=== PATIENT | female | born 1960 | race Caucasian/White ===

== ENCOUNTER 2017-05-13 16:31 | Emergency (ER) | payer OTHER ==
[2014-01-10 13:11] VITALS: Ht 160 cm; Wt 93.0 kg
[~2017-05-13] VITALS: Ht 160 cm; Wt 93.0 kg
[~2017-05-13 16:31] MED LIST: ABA250I IV; ABA250I IVPB; ALB18R INH; ALBU8.5H12 IH; AMOX-559 PO; ASCO-504 PO; AZIT-18 PO; CALC600T63 PO; CELE-1 PO; CEPH-13 PO; CHOL200021 PO; CIP500 PO; CYC10 PO; CYCL1DRO6 OU; FOLI-68 PO; HYDR-385 PO; METH2.5T43 PO; NACL TP; OMEG-96 PO; OMEG500C5 PO; OMEP-125 PO; OXYC-373 PO; OXYC-823 PO; OXYC-865 PO; OXYGENHOME INH; PER PO; PNEU0.5D3 IM; PRE5 PO; PRED-1 PO; PRED20TA6 PO
--- NOTE | 2017-05-13 17:06 | ER Report ---
History and Physical Time Seen By MD: 17:05 Hx. of Stated Complaint: pt reports "seeing stars" and other vision changes, pressure in head. pt reports high bp at doctor ~1 week ago. hasn't followed up with primary (WINDY FLOOD MD) HPI/ROS CHIEF COMPLAINT: Elevated blood pressure HISTORY OF PRESENT ILLNESS: Patient is a [age]-year-old female who presents emergency department with complaint of elevated blood pressure. She's been having headache for the last week with some blurry vision. She's not formally diagnosed with hypertension. But she took her blood pressure at a pharmacy and was found to be elevated. Patient denies any chest pain or shortness of breath she denies abdominal pain. She does report some mild headache. She denies any blood in her urine. Patient denies a former smoker but quit greater than 20 years ago REVIEW OF SYSTEMS: Respiratory: No cough, no dyspnea. Cardiovascular: No chest pain, no palpitations. Gastrointestinal: No vomiting, no abdominal pain. Musculoskeletal: No back pain. (WINDY FLOOD MD) Allergies: Coded Allergies: infliximab (Verified Allergy, Intermediate, THROAT SWELLING, 05/13/17) walnut (Verified Allergy, Intermediate, swelling, 05/13/17) Sulfa (Sulfonamide Antibiotics) (Verified Allergy, Unknown, Unknown, ) Uncoded Allergies: CHEAP METALS (Allergy, Mild, SORES, BLISTERS, 08/14/13) Home Meds Active Scripts Lorazepam (ATIVAN) 0.5 Mg Tablet, 0.5 MG PO Q6-8H Y for anxiety, #15 Prov:FRANCES KELLER DO 05/13/17 Omeprazole (OMEPRAZOLE) 20 Mg Capsule.dr, 1 CAP PO DAILY, #90 CAP 3 Refills TAKE ONE CAPSULE BY MOUTH ONCE A DAY Prov:JERONIMO AYALA MD 05/08/16 Reported Medications Ascorbate Calcium (VITAMIN C) 500 Mg Tablet, 1 TAB PO QDAY 10/12/15 [place]-3 Fatty Acids/Fish Oil (OMEGA 3 1,000 MG SOFTGEL) 1 Each Capsule, 2 TAB PO QDAY, CAPSULE 10/12/15 Folic Acid (FOLIC ACID) 1 Mg Tablet, 1 TAB PO QDAY, TAB 10/12/15 Methotrexate Sodium (METHOTREXATE) 2.5 Mg Tablet, 2.5-4 MG PO QWEEK 10/12/15 Oxygen (OXYGEN) Inha, 2.5 L INH QHS, L 10/12/15 Cyclosporine (RESTASIS) 1 Each Droperette, 1 DROP OU BID 09/23/14 Oxycodone Hcl/Acetaminophen (PERCOCET 5-325 MG TABLET) 1 Each Tablet, 1 EACH PO QHS, TAB 09/23/14 Calcium Carbonate (CALCIUM) Unknown Strength Tablet, PO 09/23/14 Abatacept (ORENCIA 250 MG VIAL) 250 Mg/Vial Injs, 4 UNITS IVPB Q4WK 11/19/13 Celecoxib (CELEBREX) 200 Mg Capsule, 1 CAP PO BID, CAPSULE TAKE 1 CAPSULE BY MOUTH TWICE DAILY 11/19/13 Cholecalciferol (Vitamin D3) (VITAMIN D) 2,000 Unit Capsule, 1 CAP PO DAILY, CAPSULE 11/19/13 Past Medical/Surgical History Rheumatoid arthritis and multiple joint surgeries (WINDY FLOOD MD) Smoking Status: Former Smoker Hx Substance Use Disorder: Yes (FROM AGE 13-AGE 23) Hx Alcohol Use: Yes (WINDY FLOOD MD) Constitutional Vital Sign - Last 24 Hours 05/13/17 05/13/17 05/13/17 05/13/17 16:36 16:39 17:00 17:01 Temp 99.1 Pulse 94 81 Resp 16 B/P (MAP) 176/91 (119) 176/91 129/84 (99) Pulse Ox 92 93 O2 Delivery Room Air 05/13/17 05/13/17 05/13/17 05/13/17 17:30 17:31 18:00 18:01 Pulse 86 78 B/P (MAP) 134/92 (106) 123/65 (84) Pulse Ox 94 93 05/13/17 05/13/17 05/13/17 05/13/17 18:06 18:11 18:16 18:24 Pulse 79 80 77 B/P (MAP) 128/78 (95) Pulse Ox 93 93 93 05/13/17 18:26 Pulse 80 Pulse Ox 95 (FRANCES KELLER DO) Physical Exam General Appearance: The patient is alert, has no immediate need for airway protection and no signs of toxicity. Eyes: Pupils equal and round no pallor or injection. ENT, Mouth: Mucous membranes are moist. Respiratory: There are no retractions, lungs are clear to auscultation. Cardiovascular: Regular rate and rhythm. [ ] Gastrointestinal: Abdomen is soft and non tender, no masses, bowel sounds normal. Neurological: Awake alert in no acute distress Skin: Warm and dry, no rashes. Musculoskeletal: Neck is supple non tender. Extremities are nontender, nonswollen and have full range of motion. [ ] (WINDY FLOOD MD) Medical Decision Making Data Points Result Diagram: 05/13/17 1720 05/13/17 1720 Laboratory Hematology Test 05/13/17 17:20 05/13/17 18:25 Red Blood Count 5.26 M/uL (4.17-5.56) Mean Corpuscular Volume 81.9 fL (80.0-96.0) Mean Corpuscular Hemoglobin 27.8 pg (26.0-33.0) Mean Corpuscular Hemoglobin Concent 34.0 g/dL (32.0-36.0) Red Cell Distribution Width 16.8 % (11.5-14.5) Mean Platelet Volume 6.9 fL (7.2-11.1) Neutrophils (%) (Auto) 60.1 % (39.4-72.5) Lymphocytes (%) (Auto) 29.1 % (17.6-49.6) Monocytes (%) (Auto) 6.9 % (4.1-12.4) Eosinophils (%) (Auto) 2.6 % (0.4-6.7) Basophils (%) (Auto) 1.3 % (0.3-1.4) Nucleated RBC Relative Count (auto) 0.0 /100WBC Neutrophils # (Auto) 5.6 K/uL (2.0-7.4) Lymphocytes # (Auto) 2.7 K/uL (1.3-3.6) Monocytes # (Auto) 0.6 K/uL (0.3-1.0) Eosinophils # (Auto) 0.2 K/uL (0.0-0.5) Basophils # (Auto) 0.1 K/uL (0.0-0.1) Nucleated RBC Absolute Count (auto) 0.00 K/uL Sodium Level 140 mmol/L (137-145) Potassium Level 3.9 mmol/L (3.5-5.0) Chloride Level 106 mmol/L (98-107) Carbon Dioxide Level 23 mmol/L (22-31) Blood Urea Nitrogen 14 mg/dl (7-18) Creatinine 0.80 mg/dl (0.52-1.04) Glomerular Filtration Rate Calc > 60.0 Random Glucose 78 mg/dl (75-110) Calcium Level 9.1 mg/dl (8.4-10.2) Urine Color Yellow Urine Clarity Clear Urine pH 7.0 pH (4.8-9.5) Urine Specific [place] 1.009 Urine Protein Negative mg/dL (NEGATIVE) Urine Glucose (UA) Negative mg/dL (NEGATIVE) Urine Ketones Negative mg/dL (NEGATIVE) Urine Blood Negative (NEGATIVE) Urine Nitrite Negative (NEGATIVE) Urine Bilirubin Negative (NEGATIVE) Urine Urobilinogen Negative mg/dL (0.2-1.9) Urine Leukocyte Esterase Negative (NEGATIVE) Urine RBC None /HPF (0-2/HPF) Urine WBC 1 /HPF (0-5/HPF) Urine Squamous Epithelial Cells Few /LPF (</=FEW) Urine Bacteria Few /HPF (NONE-FEW) Urine Mucus None /HPF (NONE-FEW) Chemistry Test 05/13/17 17:20 05/13/17 18:25 White Blood Count 9.3 k/uL (4.5-11.0) Red Blood Count 5.26 M/uL (4.17-5.56) Hemoglobin 14.6 g/dL (12.0-16.0) Hematocrit 43.1 % (34.0-47.0) Mean Corpuscular Volume 81.9 fL (80.0-96.0) Mean Corpuscular Hemoglobin 27.8 pg (26.0-33.0) Mean Corpuscular Hemoglobin Concent 34.0 g/dL (32.0-36.0) Red Cell Distribution Width 16.8 % (11.5-14.5) Platelet Count 295 K/uL (150-450) Mean Platelet Volume 6.9 fL (7.2-11.1) Neutrophils (%) (Auto) 60.1 % (39.4-72.5) Lymphocytes (%) (Auto) 29.1 % (17.6-49.6) Monocytes (%) (Auto) 6.9 % (4.1-12.4) Eosinophils (%) (Auto) 2.6 % (0.4-6.7) Basophils (%) (Auto) 1.3 % (0.3-1.4) Nucleated RBC Relative Count (auto) 0.0 /100WBC Neutrophils # (Auto) 5.6 K/uL (2.0-7.4) Lymphocytes # (Auto) 2.7 K/uL (1.3-3.6) Monocytes # (Auto) 0.6 K/uL (0.3-1.0) Eosinophils # (Auto) 0.2 K/uL (0.0-0.5) Basophils # (Auto) 0.1 K/uL (0.0-0.1) Nucleated RBC Absolute Count (auto) 0.00 K/uL Glomerular Filtration Rate Calc > 60.0 Calcium Level 9.1 mg/dl (8.4-10.2) Urine Color Yellow Urine Clarity Clear Urine pH 7.0 pH (4.8-9.5) Urine Specific [place] 1.009 Urine Protein Negative mg/dL (NEGATIVE) Urine Glucose (UA) Negative mg/dL (NEGATIVE) Urine Ketones Negative mg/dL (NEGATIVE) Urine Blood Negative (NEGATIVE) Urine Nitrite Negative (NEGATIVE) Urine Bilirubin Negative (NEGATIVE) Urine Urobilinogen Negative mg/dL (0.2-1.9) Urine Leukocyte Esterase Negative (NEGATIVE) Urine RBC None /HPF (0-2/HPF) Urine WBC 1 /HPF (0-5/HPF) Urine Squamous Epithelial Cells Few /LPF (</=FEW) Urine Bacteria Few /HPF (NONE-FEW) Urine Mucus None /HPF (NONE-FEW) Urinalysis Test 05/13/17 18:25 Urine Color Yellow Urine Clarity Clear Urine pH 7.0 pH (4.8-9.5) Urine Specific [place] 1.009 Urine Protein Negative mg/dL (NEGATIVE) Urine Glucose (UA) Negative mg/dL (NEGATIVE) Urine Ketones Negative mg/dL (NEGATIVE) Urine Blood Negative (NEGATIVE) Urine Nitrite Negative (NEGATIVE) Urine Bilirubin Negative (NEGATIVE) Urine Urobilinogen Negative mg/dL (0.2-1.9) Urine Leukocyte Esterase Negative (NEGATIVE) Urine RBC None /HPF (0-2/HPF) Urine WBC 1 /HPF (0-5/HPF) Urine Squamous Epithelial Cells Few /LPF (</=FEW) Urine Bacteria Few /HPF (NONE-FEW) Urine Mucus None /HPF (NONE-FEW) (FRANCES KELLER DO) EKG/Imaging Imaging Results: CT scan of the head was obtained. The results of the study are CT Head without intravenous contrast HISTORY: Hypertension. Headache. TECHNIQUE: Axial images were obtained from the skull base to the vertex without intravenous contrast. Sagittal and coronal reformatted images are also submitted. One of the following dose optimization techniques was utilized in the performance of this exam: Automated exposure control; adjustment of the mA and/ or kV according to the patient's size; or use of an iterative reconstruction technique. Specific details can be referenced in the facility's radiology CT exam operational policy. COMPARISON: None. FINDINGS: Brain volume: Normal. Ventricles: Negative. Acute ischemic changes: None. Hemorrhage: None. Masses / edema: None. Veloz-white: Negative. White matter: Negative. Vessels: Negative. Extra-axial: Negative. Calvarium / skull base: Severe bilateral TMJ arthritis. Severe degenerative changes of the craniocervical junction with at least mild spinal canal stenosis at C1. Visualized sinuses / orbits: Rightward nasal septal deviation. IMPRESSION: 1. No acute intracranial abnormality. 2. Severe bilateral TMJ arthritis. 3. Severe degenerative changes of the craniocervical junction with at least mild spinal canal stenosis at C1. The study was read by the radiologist. I viewed the images myself on the PACS system. (FRANCES KELLER DO) ED Course/Re-evaluation ED Course Plan at this time will be to perform CBC electrolytes EKG urinalysis and chest x -ray initial blood pressure is 176/91 currently at my evaluation blood pressure is normal at 126/84. (WINDY FLOOD MD) ED Course Care was assumed at shift change with diagnostic studies pending. Patient's head CT was unremarkable for any acute ischemic events. She is discharged home with conservative treatment plan. Advised to follow-up with her primary care physician. Decision to Disposition Date: May 13, 2017 Decision to Disposition Time: 18:25 (FRANCES KELLER DO) Depart Departure Latest Vital Signs Vital Signs Date Time Temp Pulse Resp B/P (MAP) Pulse Ox O2 Delivery O2 Flow Rate FiO2 05/13/17 18:26 80 95 05/13/17 18:24 128/78 (95) 05/13/17 16:39 99.1 16 Room Air (FRANCES KELLER DO) Impression: Primary Impression: Hypertension Additional Impressions: Anxiety TMJ articul disc disordr Condition: Improved Disposition: HOME OR SELF-CARE Referrals: GLO PANDEY APRN [employer] (PCP) 1 Week for blood pressure check New Scripts Lorazepam (ATIVAN) 0.5 Mg Tablet 0.5 MG PO Q6-8H Y for anxiety, #15 Prov: FRANCES KELLER DO 05/13/17 Patient Instructions: Anxiety (ED), Hypertension (DC) Additional Instructions: Follow-up with your primary care provider within one week for blood pressure recheck Problem Qualifiers Primary Impression: Hypertension Hypertension type: unspecified Qualified Codes: I10 - Essential (primary) hypertension WINDY FLOOD MD May 13, 2017 17:06 FRANCES KELLER DO May 13, 2017 18:25
[2017-05-13 17:28] LABS: PLATELET COUNT, AUTOMATED 295 K/uL (150-450)
--- NOTE | 2017-05-13 18:14 | RADIOLOGY IMAGING REPORT ---
FACILITY: [facility] PATIENT NAME: Jorge A Parker : 1960 MR: [id number] V: [id number] EXAM DATE: ORDERING PHYSICIAN: WINDY FLOOD TECHNOLOGIST: [place] [facility] [place] Patient: Jorge A Parker : 1960 Visit/Account:[id number] Date of Sevice: 05/13/2017 EXAMINATION: CT Head without intravenous contrast HISTORY: Hypertension. Headache. TECHNIQUE: Axial images were obtained from the skull base to the vertex without intravenous contrast . Sagittal and coronal reformatted images are also submitted. One of the following dose optimization techniques was utilized in the performance of this exam: Autom ated exposure control; adjustment of the mA and/or kV according to the patient's size; or use of an i terative reconstruction technique. Specific details can be referenced in the facility's radiology C T exam operational policy. COMPARISON: None. FINDINGS: Brain volume: Normal. Ventricles: Negative. Acute ischemic changes: None. Hemorrhage: None. Masses / edema: None. Veloz-white: Negative. White matter: Negative. Vessels: Negative. Extra-axial: Negative. Calvarium / skull base: Severe bilateral TMJ arthritis. Severe degenerative changes of the craniocer vical junction with at least mild spinal canal stenosis at C1. Visualized sinuses / orbits: Rightward nasal septal deviation. IMPRESSION: 1. No acute intracranial abnormality. 2. Severe bilateral TMJ arthritis. 3. Severe degenerative changes of the craniocervical junction with at least mild spinal canal stenosi s at C1. 4. Rightward nasal septal deviation. Report Dictated By: Pacheco Rhodes MD at 05/13/2017 6:06 PM Report E-Signed By: Pacheco Rhodes MD at 05/13/2017 6:11 PM WSN:[id number]
[2017-05-13 18:24] VITALS: BP 128/78
[2017-05-13] MEDS ORDERED: LORA-1455 PO (18:31)
== END 2017-05-13 18:57 | disposition home or self-care (01) ==
LOC: ER 16:55
DX: I10 Essential (primary) hypertension (principal); M26.633 Articular disc disorder of bilateral temporomandibular joint; F41.9 Anxiety disorder, unspecified
CPT/HCPCS: 36415; 70450; 81001; 82310; 82374; 82435; 82565; 82947; 84132; 84295; 84520; 85025; 99284

== ENCOUNTER → 2017-05-31 | Outpatient (CLI) | payer OTHER ==
[2014-01-10 13:11] VITALS: BMI 34.9
[~2017-05-31] MED LIST changes: +DULO30CA35 PO; +DULO60CA56 PO; +LORA-1455 PO
== END ==
LOC: LAB 09:39
PROVIDERS: ATTEND Nurse Practitioner Family
DX: F41.9 Anxiety disorder, unspecified (principal)
CPT/HCPCS: 36415; 84443

== ENCOUNTER → 2017-10-11 | Outpatient (CLI) | payer OTHER ==
[2014-01-10 13:11] VITALS: BMI 34.9
[~2017-10-11] MED LIST changes: +PNEI IM; +RANI-366 PO; +ROPI0.2527 PO
[2017-10-11 10:01] LABS: LDL CHOLESTEROL 121 mg/dl
== END ==
LOC: LAB 09:05
PROVIDERS: ATTEND Nurse Practitioner Family
DX: Z00.00 Encounter for general adult medical examination without abnormal findings (principal); F41.9 Anxiety disorder, unspecified; I10 Essential (primary) hypertension
CPT/HCPCS: 36415; 82040; 82247; 82310; 82374; 82435; 82465; 82565; 82947; 83718; 84075; 84132; 84155; 84295; 84443; 84450; 84460; 84478; 84520

== ENCOUNTER → 2018-01-14 | Outpatient (CLI) | payer OTHER ==
[2014-01-10 13:11] VITALS: BMI 34.9
[2018-01-14 11:56] LABS: PLATELET COUNT, AUTOMATED 284 K/uL (150-450)
== END ==
LOC: LAB 11:28
PROVIDERS: ATTEND Nurse Practitioner Family
DX: M06.9 Rheumatoid arthritis, unspecified (principal); I10 Essential (primary) hypertension
CPT/HCPCS: 36415; 82040; 82247; 82310; 82374; 82435; 82565; 82947; 84075; 84132; 84155; 84295; 84450; 84460; 84520; 85025; 85651; 86140

== ENCOUNTER → 2018-04-22 | Outpatient (CLI) | payer OTHER ==
[2014-01-10 13:11] VITALS: BMI 34.9
--- NOTE | 2018-04-23 11:15 | RADIOLOGY IMAGING REPORT ---
[place]AC[place] [facility] [place]IENT NAME: RHINA WALKER : [id number] MR: [id number] V: [id number] EXAM DATE: ORDERING PHYSICIAN: GLO PANDEY TECHNOLOGIST: Amelia Cruz PROCEDURE:BILATERAL DIGITAL SCREENING MAMMOGRAM WITH CAD ASSISTED INTERPRETATION & 3D TOMOSYNTHESIS COMPARISON:Prior mammograms 10/20/14, 02/27/13. INDICATIONS:screening FINDINGS: Scattered fibroglandular densities are seen throughout the breasts. The parenchymal pattern has remained stable allowing for difference in mammographic technique & patient positioning. DIAGNOSTIC CATEGORY 1--NEGATIVE. RECOMMENDATIONS: ROUTINE MAMMOGRAM AND CLINICAL EVALUATION. IMPRESSION: BIRADS 1: Negative. No significant abnormality is seen. Dictated by: Sushma Jimenez M.D. on 04/22/2018 at 11:13 Transcribed by: REID on 04/22/2018 at 13:37 Approved by: Sushma Jimenez M.D. on 04/23/2018 at 11:14 [facility]
== END ==
LOC: MAMO 00:45
PROVIDERS: ATTEND Nurse Practitioner Family
DX: Z12.31 Encounter for screening mammogram for malignant neoplasm of breast (principal)
CPT/HCPCS: 77063; 77067